=== PATIENT | female | born 1960 | race Hispanic/Latino ===

== ENCOUNTER 2017-08-13 10:33 | Emergency (ER) | payer MEDICAID ==
[2017-08-13 10:34] VITALS: BMI 20.9
[2017-08-13 10:51] VITALS: TEMP 98.7; O2SAT 100
[2017-08-13] MEDS ORDERED: Albuterol-Ipratrop 3 mg / 0.5 (3 ml) UD IH STA (13:02)
--- NOTE | 2017-08-13 13:06 | ED PDOC ---
Arrival/HPI - General Chief Complaint: ENT Problem Time Seen by Provider: 08/13/17 10:57 Historian: Patient - History of Present Illness Narrative History of Present Illness (Text): 08/13/17 13:02 57yo female with PMhx of Asthma present with complaint of cough, sore throat x 2days. States started having chest pain with cough today. Notes Tmax of 102 yesterday. States she took OTC antitussive. Denies sick contact, nausea, vomiting, abdominal pain, nuchal rigidity, travel, any other complaint. Past Medical History - Provider Review Nursing Documentation Reviewed: Yes - Infectious Disease Hx of Infectious Diseases: None - Reproductive Menopause: Yes - Pulmonary Hx Respiratory Disorders: Yes Hx Asthma: Yes - Musculoskeletal/Rheumatological Hx Falls: No - Psychiatric Hx Depression: No Hx Emotional Abuse: No Hx Physical Abuse: No Hx Substance Use: No - Past Surgical History Past Surgical History: No Previous - Anesthesia Hx Anesthesia: No - Suicidal Assessment Feels Threatened In Home Enviroment: No Family/Social History - Physician Review Nursing Documentation Reviewed: Yes Family/Social History: Unknown Family HX Smoking Status: Never Smoked Hx Alcohol Use: No Hx Substance Use: No Hx Substance Use Treatment: No Allergies/Home Meds Allergies/Adverse Reactions: Allergies codeine Allergy (Verified 08/13/17 11:46) VOMITING Home Medications: Home Meds Medication Instructions Recorded Confirmed Albuterol 0.083% [Albuterol 3 ml IH BID PRN 10/11/12 08/13/17 Sulfate 3 Ml] Fluticasone/Salmeterol [Advair 1 puff IH BID 10/11/12 08/13/17 Diskus 250/50] Review of Systems - Physician Review All systems were reviewed & negative as marked: Yes - Review of Systems Constitutional: Normal Eyes: Normal ENT: Sore Throat Respiratory: Cough. absent: SOB, Sputum, Wheezing Cardiovascular: Chest Pain. absent: Palpitations, Edema, Calf Pain Gastrointestinal: Normal Genitourinary Female: Normal Musculoskeletal: Normal Skin: Normal Neurological: Normal Endocrine: Normal Hemo/Lymphatic: Normal Psychiatric: Normal Physical Exam Vital Signs Reviewed: Yes Vital Signs Temp Pulse Resp BP Pulse Ox 08/13/17 13:37 78 17 110/74 100 08/13/17 10:51 98.7 F 85 19 130/80 100 Temperature: Afebrile Blood Pressure: Normal Pulse: Regular Respiratory Rate: Normal Appearance: Positive for: Well-Appearing, Non-Toxic, Comfortable Pain Distress: None Mental Status: Positive for: Alert and Oriented X 3 - Systems Exam Head: Present: Atraumatic, Normocephalic Pupils: Present: PERRL Extroacular Muscles: Present: EOMI Conjunctiva: Present: Normal Mouth: Present: Moist Mucous Membranes Pharnyx: Present: Normal. No: ERYTHEMA, EXUDATE, TONSILS ENLARGED, Peritonsilar Swelling, Uvular Deviation, Muffled/Hoarse Voice, Strider, Soft Palate/Uvular Edema Neck: Present: Normal Range of Motion Respiratory/Chest: Present: Clear to Auscultation, Good Air Exchange. No: Respiratory Distress, Accessory Muscle Use, Wheezes, Decreased Breath Sounds, Rales, Retracting, Rhonchi Cardiovascular: Present: Regular Rate and Rhythm, Normal S1, S2. No: Murmurs Abdomen: Present: Normal Bowel Sounds. No: Tenderness, Distention, Peritoneal Signs Back: Present: Normal Inspection Upper Extremity: Present: Normal Inspection. No: Cyanosis, Edema Lower Extremity: Present: Normal Inspection. No: Edema Neurological: Present: GCS=15, CN II-XII Intact, Speech Normal Skin: Present: Warm, Dry, Normal Color. No: Rashes Lymphatic: Present: Cervical Adenopathy (Right sided cerival node palpable and tender) Psychiatric: Present: Alert, Oriented x 3, Normal Insight, Normal Concentration Medical Decision Making ED Course and Treatment: 08/13/17 20:53 CXR NAD Rapid strep was negative Pt was positive for flu and treated with Tamiflu She have lymphadenopathy and was given Zpak Referred to her PMD. Advised to drink plenty of fluid and rest. - Lab Interpretations Lab Results: Lab Results 08/13/17 13:41: Influenza Typ A,B (EIA) Pos for influenza a H 08/13/17 12:26: Grp A Beta Strep Ag Negative - RAD Interpretation Radiology Orders: 08/13/17 11:09 CHEST TWO VIEWS (PA/LAT) [RAD] Stat - Medication Orders Current Medication Orders: Discontinued Medications Acetaminophen (Tylenol 325mg Tab) 650 mg PO STAT STA Stop: 08/13/17 12:59 Last Admin: 08/13/17 13:29 Dose: 650 mg MAR Pain/Vitals Document 08/13/17 13:29 MR (Rec: 08/13/17 13:30 MR [facility] [place]-[id number]) Pain Reassessment Is This A Pain ReAssessment? Yes Sleep Is patient sleeping during reassessment? 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 Description Constant Intensity 6 Scale Used Numeric Pain Behavior Facial Grimacing Alleviating Factors Medication Albuterol/Ipratropium (Duoneb 3 Mg/0.5 Mg (3 Ml) Ud) 3 ml IH STAT STA Stop: 08/13/17 13:03 Last Admin: 08/13/17 13:30 Dose: 3 ml Azithromycin (Zithromax) 500 mg PO STAT STA PRN Reason: Protocol Stop: 08/13/17 13:53 Last Admin: 08/13/17 14:21 Dose: 500 mg Guaifenesin (Robitussin) 200 mg PO Q4H STA Stop: 08/13/17 13:54 Last Admin: 08/13/17 14:20 Dose: 200 mg Oseltamivir Phosphate (Tamiflu Cap) 75 mg PO ONCE STA PRN Reason: Protocol Stop: 08/13/17 14:11 Last Admin: 08/13/17 14:21 Dose: 75 mg Disposition/Present on Arrival - Present on Arrival Any Indicators Present on Arrival: No History of DVT/PE: No History of Uncontrolled Diabetes: No Urinary Catheter: No History of Decub. Ulcer: No History Surgical Site Infection Following: None - Disposition Have Diagnosis and Disposition been Completed?: Yes Diagnosis: Influenza, Lymphadenopathy Disposition: HOME/ ROUTINE Disposition Time: 14:15 Patient Plan: Discharge Condition: STABLE Discharge Instructions (ExitCare): Lymphadenopathy (ED), Influenza (ED) Additional Instructions: Follow up with your doctor Drink plenty of fluid and rest Return to ED for any new or worsening symptoms Prescriptions: Azithromycin [Zithromax] 250 mg PO DAILY #4 tab Benzonatate [Tessalon Perles] 100 mg PO TID #20 sgl Oseltamivir Phosphate [Tamiflu] 75 mg PO BID #10 capsule Referrals: [facility] at [facility] [place] [facility] [Outside] - Follow up with primary Forms: [employer] (Hungarian), WORK NOTE
[2017-08-13 13:38] VITALS: BP 110/74; PULSE 78; RESP 17
[2017-08-13] MEDS ORDERED: guaiFENesin 200 mg/10 ml Syrup UD PO STA (13:53)
--- NOTE | 2017-08-13 14:16 | RAD ---
HISTORY: cough COMPARISON: 10/11/2012 TECHNIQUE: Chest PA and lateral FINDINGS: LUNGS: No active pulmonary disease. PLEURA: No significant pleural effusion identified. No pneumothorax apparent. CARDIOVASCULAR: Normal. OSSEOUS STRUCTURES: No significant abnormalities. VISUALIZED UPPER ABDOMEN: Normal. OTHER FINDINGS: None. IMPRESSION: No active disease.
--- NOTE | 2017-08-13 17:13 | CARD ---
APPROVED REPORT EKG Measurement Heart [id number] [id number] <Conclusion> Normal sinus rhythm RSR' or QR pattern in V1 suggests right ventricular conduction delay Nonspecific ST abnormality Abnormal ECG
== END 2017-08-13 15:14 | disposition home or self-care (01) ==
LOC: ED 10:33
DX: J11.1 Influenza due to unidentified influenza virus with other respiratory manifestations (principal); R59.1 Generalized enlarged lymph nodes